=== PATIENT | female | born 1945 | race Caucasian/White ===

== ENCOUNTER 2022-06-02 10:52 | Outpatient (CLI) | payer MEDICARE, BC ==
[2022-06-02 12:01] LABS: #Eosinphils 0.1 10x3/uL (0.0-0.5); #Monocytes 0.6 10x3/uL (0.0-1.1); #Neutrophils 5.2 10x3/uL (1.5-8.4); %Basophils 0.3 % (0.0-2.0); %Eosinophils 1.9 % (0.0-6.0); %Lymphocytes 16.6 % (18.0-47.0); %Monocytes 8.6 % (0.0-10.0); %Neutrophils 72.2 % (40.0-75.0); Hemoglobin 12.7 g/dL (12.0-15.5); Mean Corpuscular HGB CONC 33.4 g/dL (32.0-36.0); Mean Corpuscular Hemoglobin 30.8 pg (27.0-33.0); Mean Corpuscular Volume 92.2 fl (81.6-98.3); Mean Platelet Volume 10.5 fl (7.4-10.4); Platelet Count 328 10x3/uL (150-450); RBC Distribution Width 13.1 % (11.5-14.5); Red Blood Cell (RBC) Count 4.12 10x6/uL (3.90-5.03); White Blood Cell (WBC) Count 7.2 10x3/uL (3.5-10.5)
[2022-06-02 12:24] LABS: Anion Gap 13 mmol/L (10-20); BUN (Urea Nitrogen) 18 mg/dL (9.8-20.1); Calc. Creatinine Clearance 0 mL/min (70-130); Calcium 9.4 mg/dL (7.8-10.44); Carbon Dioxide 24 mmol/L (23-31); Chloride 106 mmol/L (98-107); Estimated GFR 77; Glucose 99 mg/dL (83-110); Potassium 5.1 mmol/L (3.5-5.1); Sodium 138 mmol/L (136-145)
== END 2022-06-02 10:53 | disposition home or self-care (01) ==
LOC: LABBT 10:52
PROVIDERS: ATTEND Surgery
DX: Z01.818 Encounter for other preprocedural examination (principal); Z20.822 Contact with and (suspected) exposure to COVID-19
CPT/HCPCS: 80048; 85025; 87811; 93005; 93010

== ENCOUNTER 2022-06-05 06:48 | Day surgery (SDC) | payer MEDICARE, BC ==
[2022-06-03 12:17] VITALS: BMI 27.8
[2022-06-05] MEDS ORDERED: Bupivacaine/Epinephrine 0.25% 30 ML VIAL ONE ×2 (08:09→11:45)
[2022-06-05] MEDS ORDERED: fentaNYL Citrate/PF 100 MCG/2 ML SYRINGE ONE ×4 (08:50→10:42)
[2022-06-05] MEDS ORDERED: SUGAMMADEX SODIUM 200 MG/2 ML VIAL ONE (08:51)
[2022-06-05] MEDS ORDERED: CEFAZOLIN 2 GM VIAL ONE (09:03)
[2022-06-05] MEDS ORDERED: Sodium Chloride 0.9% 100 ML ONE (09:03)
[2022-06-05] MEDS ORDERED: Esmolol 100 MG/10 ML VIAL ONE (09:12)
[2022-06-05] MEDS ORDERED: Rocuronium Bromide 10 MG/ML (10ML VIAL) ONE (09:12)
[2022-06-05] MEDS ORDERED: Dexamethasone 20 MG/5 ML VIAL ONE ×2 (09:12→11:45)
[2022-06-05] MEDS ORDERED: Glycopyrrolate 0.2 MG/ML 5 ML SYRINGE ONE (09:12)
[2022-06-05] MEDS ORDERED: Ondansetron PF 4 MG/2 ML Vial ONE (09:12)
[2022-06-05] MEDS ORDERED: Lidocaine 1% PF 5 ML VIAL ONE (09:12)
[2022-06-05] MEDS ORDERED: Neostigmine Methylsulfate 3 MG/3 ML SYRINGE ONE (09:12)
[2022-06-05] MEDS ORDERED: PROPOFOL 200 MG/20 ML VIAL ONE (09:12)
[2022-06-05] MEDS ORDERED: HYDROmorphone 0.5 MG/0.5 ML SYRINGE ONE ×2 (11:00→11:30)
[2022-06-05] MEDS ORDERED: EPINEPHrine 1 MG/ML AMP ONE (11:18)
[2022-06-05] MEDS ORDERED: Bupivacaine 0.25% HCL 30 ML VIAL ONE (11:18)
[2022-06-05] MEDS ORDERED: Dexamethasone 4 mg/ml Vial ONE (11:19)
[2022-06-05] MEDS ORDERED: Ropivacaine 2% HCl/PF (20 MG/10 ML VIAL) ONE (11:45)
[2022-06-05] MEDS ORDERED: HYDROcodone/Acetaminophen 5/325 mg Tablet ONE (13:03)
== END 2022-06-05 14:06 | disposition home or self-care (01) ==
LOC: SDC 06:48
PROVIDERS: ATTEND Surgery
PROC: 0WUF4JZ Supplement Abdominal Wall with Synthetic Substitute, Percutaneous Endoscopic Approach (ICD-10-PCS; principal; 2022-06-05)
DX: K43.2 Incisional hernia without obstruction or gangrene (principal); E03.9 Hypothyroidism, unspecified; Z79.890 Hormone replacement therapy; Z79.899 Other long term (current) drug therapy; Z88.8 Allergy status to other drugs, medicaments and biological substances; Z87.891 Personal history of nicotine dependence
CPT/HCPCS: 49654; C1781; J0171; J0690; J1100; J1170; J2405; J2704; J2795; J3490; S0020

== ENCOUNTER 2023-11-03 22:29 | Inpatient (IN) | payer MEDICARE ==
[2023-11-03] MEDS ORDERED: Acetaminophen 325 MG TAB ONE (23:16)
[2023-11-03] MEDS ORDERED: Acetaminophen 325 MG TAB PO PRN (23:45)
[2023-11-03] MEDS ORDERED: dilTIAZem 125 MG in Sodium Chloride 0.9% 100 ML IVPB SCH (23:45)
[2023-11-04] MEDS ORDERED: Zolpidem Tartrate 5 MG TAB PO SCH ×2 (00:45→21:00)
[2023-11-04] MEDS ORDERED: Zolpidem Tartrate 5 MG TAB ONE (01:19)
[2023-11-04] MEDS ORDERED: dilTIAZem 30 MG TAB PO SCH (03:30)
[2023-11-04] MEDS ORDERED: Magnesium 2 GM/50 ML(in water) 2 GM in Premix 1 BAG IVPB SCH (03:30)
[2023-11-04] MEDS ORDERED: Magnesium 2 GM/50 ML BAG (IN WATER) ONE (03:56)
[2023-11-04] MEDS ORDERED: DULoxetine 60 MG CAP ONE (08:28)
[2023-11-04] MEDS ORDERED: Enoxaparin 40 MG (0.4 mL) SYRINGE ONE (08:28)
[2023-11-04] MEDS ORDERED: CeleCOXIB 100 MG CAP PO SCH (09:00)
[2023-11-04] MEDS ORDERED: Enoxaparin 40 MG (0.4 mL) SYRINGE SC SCH (09:00)
[2023-11-04] MEDS ORDERED: Levothyroxine Sodium 75 MCG TAB PO SCH (09:00)
[2023-11-04] MEDS ORDERED: Trospium 20 MG TAB PO SCH (09:00)
[2023-11-04] MEDS ORDERED: Levothyroxine Sodium 75 MCG TAB ONE (09:08)
[2023-11-04] MEDS: Estradiol 1 MG TAB PO SCH (09:20)
[2023-11-04] MEDS: dilTIAZem 30 MG TAB PO SCH ×4 (09:20→19:46)
[2023-11-04] MEDS: DULoxetine 60 MG CAP PO SCH (09:20)
[2023-11-04] MEDS: busPIRone HCl 5 MG TAB PO SCH (09:20)
[2023-11-04 09:26] LABS: #Eosinphils 0.2 thou/uL (0.0-0.7); #Monocytes 0.5 thou/uL (0.11-0.59); #Neutrophils 4.2 thou/uL (1.40-6.50); %Basophils 0.3 % (0.0-1.0); %Eosinophils 3.2 % (0.0-10.0); %Lymphocytes 22.6 % (21.0-51.0); %Monocytes 7.6 % (0.0-10.0); %Neutrophils 66.1 % (42.0-75.0); Hemoglobin 11.8 g/dL (12.0-16.0); Mean Corpuscular HGB CONC 33.7 g/dL (32.0-36.0); Mean Corpuscular Hemoglobin 31.6 pg (27.0-31.0); Mean Corpuscular Volume 93.8 fl (78.0-98.0); Mean Platelet Volume 10.5 fL (7.4-10.4); Platelet Count 311 10x3/uL (130-400); RBC Distribution Width 13.1 % (11.5-14.5); Red Blood Cell (RBC) Count 3.73 mill/uL (4.20-5.40); White Blood Cell (WBC) Count 6.3 10x3/uL (4.8-10.8)
[2023-11-04 09:49] LABS: Magnesium 2.1 mg/dL (1.6-2.6); Phosphorus 2.7 mg/dL (2.3-4.7)
[2023-11-04 09:51] LABS: ALT (SGPT) 64 U/L (8-55); AST (SGOT) 37 U/L (5-34); Albumin 3.7 g/dL (3.4-4.8); Alkaline Phosphatase 63 U/L (40-110); Anion Gap 13 mmol/L (10-20); BUN (Urea Nitrogen) 8 mg/dL (9.8-20.1); Bilirubin, Total 0.7 mg/dL (0.2-1.2); Calc. Creatinine Clearance 88 mL/min (70-130); Calcium 8.4 mg/dL (7.8-10.44); Carbon Dioxide 22 mmol/L (23-31); Chloride 105 mmol/L (98-107); Estimated GFR 88; Globulin 2.6 g/dL (2.4-3.5); Glucose 90 mg/dL (83-110); Potassium 3.9 mmol/L (3.5-5.1); Protein, Total 6.3 g/dL (5.8-8.1); Sodium 136 mmol/L (136-145)
[2023-11-04] MEDS: Acetaminophen 325 MG TAB PO PRN (12:38)
[2023-11-04 12:59] VITALS: BMI 29.7
[2023-11-04] MEDS: Dronedarone HCl 400 MG TAB PO SCH (16:48)
[2023-11-04] MEDS: Trospium 20 MG TAB PO SCH ×2 (16:48→19:46)
[2023-11-05] MEDS ORDERED: Apixaban 5 MG TAB PO SCH ×2 (00:15→09:00)
[2023-11-05] MEDS: Acetaminophen 325 MG TAB PO PRN ×2 (03:50→08:02)
[2023-11-05 05:38] LABS: #Eosinphils 0.3 thou/uL (0.0-0.7); #Monocytes 0.5 thou/uL (0.11-0.59); #Neutrophils 5.4 thou/uL (1.40-6.50); %Basophils 0.3 % (0.0-1.0); %Eosinophils 3.3 % (0.0-10.0); %Lymphocytes 17.3 % (21.0-51.0); %Neutrophils 71.8 % (42.0-75.0); Hematocrit 30.6 % (36.0-47.0); Hemoglobin 10.3 g/dL (12.0-16.0); Mean Corpuscular HGB CONC 33.7 g/dL (32.0-36.0); Mean Corpuscular Hemoglobin 31.9 pg (27.0-31.0); Mean Corpuscular Volume 94.7 fl (78.0-98.0); Mean Platelet Volume 10.7 fL (7.4-10.4); Platelet Count 279 10x3/uL (130-400); RBC Distribution Width 13.1 % (11.5-14.5); Red Blood Cell (RBC) Count 3.23 mill/uL (4.20-5.40); White Blood Cell (WBC) Count 7.5 10x3/uL (4.8-10.8)
[2023-11-05] MEDS ORDERED: Levothyroxine Sodium 75 MCG TAB PO SCH (06:00)
[2023-11-05 06:10] LABS: ALT (SGPT) 44 U/L (8-55); AST (SGOT) 21 U/L (5-34); Albumin 3.2 g/dL (3.4-4.8); Alkaline Phosphatase 56 U/L (40-110); Anion Gap 10 mmol/L (10-20); BUN (Urea Nitrogen) 10 mg/dL (9.8-20.1); Bilirubin, Total 0.7 mg/dL (0.2-1.2); Calc. Creatinine Clearance 71 mL/min (70-130); Calcium 8.4 mg/dL (7.8-10.44); Carbon Dioxide 27 mmol/L (23-31); Chloride 104 mmol/L (98-107); Estimated GFR 71; Globulin 2.4 g/dL (2.4-3.5); Glucose 90 mg/dL (83-110); Potassium 3.8 mmol/L (3.5-5.1); Protein, Total 5.6 g/dL (5.8-8.1); Sodium 137 mmol/L (136-145)
[2023-11-05] MEDS ORDERED: Ibuprofen 800 MG TAB PO PRN (07:34)
[2023-11-05] MEDS ORDERED: Ibuprofen 800 MG TAB PO SCH (08:00)
[2023-11-05] MEDS: Estradiol 1 MG TAB PO SCH (08:00)
[2023-11-05] MEDS: Dronedarone HCl 400 MG TAB PO SCH (08:00)
[2023-11-05] MEDS: busPIRone HCl 5 MG TAB PO SCH (08:00)
[2023-11-05] MEDS: dilTIAZem 30 MG TAB PO SCH ×2 (08:00→12:27)
[2023-11-05] MEDS: DULoxetine 60 MG CAP PO SCH (08:03)
[2023-11-05 12:32] VITALS: BP 107/67
[2023-11-05 12:44] VITALS: TEMP 97.6
== END 2023-11-05 15:05 | disposition home or self-care (01) | DRG 310 ==
LOC: ERS 22:29 → 2SW 23:07 → ERHOLD 23:15 → OBSVTOIN 11-04 10:58 → 2SW 11-04 11:57
PROVIDERS: ADMIT Emergency Medicine; ATTEND Emergency Medicine
DX: I48.92 Unspecified atrial flutter (principal); E03.9 Hypothyroidism, unspecified; F32.A Depression, unspecified; K21.9 Gastro-esophageal reflux disease without esophagitis; G47.00 Insomnia, unspecified; F10.90 Alcohol use, unspecified, uncomplicated; F41.9 Anxiety disorder, unspecified; I45.2 Bifascicular block; E83.42 Hypomagnesemia; M19.90 Unspecified osteoarthritis, unspecified site; Z96.651 Presence of right artificial knee joint; Z91.018 Allergy to other foods; Z88.8 Allergy status to other drugs, medicaments and biological substances; Z79.890 Hormone replacement therapy; Z79.899 Other long term (current) drug therapy; Z98.49 Cataract extraction status, unspecified eye; Z98.890 Other specified postprocedural states; Z87.81 Personal history of (healed) traumatic fracture; Z98.1 Arthrodesis status
CPT/HCPCS: 36415; 80053; 83735; 84100; 85025; 93005; 93010; 93306; 96374; J1650; J3475